=== PATIENT | male | born 1985 | race Caucasian/White ===

== ENCOUNTER 2017-06-08 11:35 | Day surgery (SDC) | payer OTHER ==
[~2017-06-08] VITALS: Ht 170.2 cm; Wt 83.1 kg
[2017-06-08 12:24] LABS: HEMATOCRIT 47.7 % (39.2-51.8); HEMOGLOBIN 15.8 g/dL (13.7-18.0)
[2017-06-08] MEDS ORDERED: SODIUM CHLORIDE FLUSH 10ML SYR IVF ONE ×2 (12:30→14:00)
[2017-06-08 12:35] LABS: BLOOD UREA NITROGEN 12 mg/dL (7-18)
[2017-06-08 12:38] LABS: ASPARTATE AMINO TRANSFERASE 11 U/L (15-37)
[2017-06-08] MEDS ORDERED: OMNIPAQUE 350 MG/ML, 100ML BOTTLE ONE (15:16)
[2017-06-08 16:11] VITALS: BP 124/76
[2017-06-08] MEDS ORDERED: SODIUM CHLORIDE 0.9% 1,000 ML IV ONE (16:11)
[2017-06-08] MEDS ORDERED: CEFOTETAN PMX 1GM/50ML 50 ML ONE (16:21)
[2017-06-08] MEDS ORDERED: HYDROmorphone 1 MG/ML, 1ML IVPush PRN (16:30)
[2017-06-08] MEDS ORDERED: CEFOTETAN PMX 1GM/50ML 50 ML IV ONE (16:30)
[2017-06-08] MEDS ORDERED: SODIUM CHLORIDE FLUSH 10ML SYR IVF PRN (16:30)
[2017-06-08] MEDS ORDERED: ONDANSETRON 2MG/ML, 2ML IVPush PRN ×3 (16:30→18:30)
[2017-06-08] MEDS ORDERED: BUPIVACAINE/PF 0.5% ONE (17:03)
[2017-06-08] MEDS ORDERED: EPINEPHRINE 1 MG/ML, 1ML ONE (17:04)
[2017-06-08] MEDS ORDERED: FENTANYL PF 100 MCG/2ML ONE ×3 (17:04→18:09)
[2017-06-08] MEDS ORDERED: MIDAZOLAM 1 MG/ML, 2ML ONE (17:04)
[2017-06-08] MEDS ORDERED: GLYCOPYRROLATE 0.4 MG/2 ML, 2ML ONE (17:22)
[2017-06-08] MEDS ORDERED: KETOROLAC 30 MG/1 ML ONE (17:22)
[2017-06-08] MEDS ORDERED: ROCURONIUM 10 MG/ML ONE (17:22)
[2017-06-08] MEDS ORDERED: NEOSTIGMINE 1 MG/ML, 10ML ONE (17:22)
[2017-06-08] MEDS ORDERED: PROPOFOL 10 MG/ML, 20ML ONE (17:22)
[2017-06-08] MEDS ORDERED: ONDANSETRON 2MG/ML, 2ML ONE (17:22)
[2017-06-08] MEDS ORDERED: DEXAMETHASONE 4 MG/ML, 1ML ONE (17:22)
[2017-06-08] MEDS ORDERED: SUCCINYLCHOLINE 20 MG/ML, 10ML ONE (17:22)
[2017-06-08] MEDS ORDERED: CEFAZOLIN 1,000 MG ONE (17:22)
[2017-06-08] MEDS ORDERED: OXYcodone 5 MG/5 ML ORAL.SOL UDC PO PRN ×2 (18:00→18:30)
[2017-06-08] MEDS ORDERED: DIPHENHYDRAMINE 50 MG/ML, 1ML IVPush PRN (18:00)
[2017-06-08] MEDS ORDERED: MEPERIDINE/PF 25MG/0.5ML ONE (18:09)
[2017-06-08] MEDS: FENTANYL PF 100 MCG/2ML IV PRN ×3 (18:09→18:30)
[2017-06-08] MEDS ORDERED: MEPERIDINE/PF 25MG/0.5ML IVPush PRN (18:30)
[2017-06-08] MEDS ORDERED: LABETALOL 5MG/ML, 20ML IV PRN (18:30)
[2017-06-08] MEDS ORDERED: HYDROmorphone 1 MG/ML, 1ML IV PRN (18:30)
[2017-06-08] MEDS ORDERED: hydrALAzine 20 MG/ML, 1ML IV PRN (18:30)
[2017-06-08] MEDS ORDERED: METOCLOPRAMIDE 5 MG/ML, 2ML IV PRN (18:30)
[2017-06-08] MEDS ORDERED: ACETAMINOPHEN 325 MG TABLET PO PRN (18:30)
[2017-06-08] MEDS ORDERED: OXYC5TAB2 PO (20:08)
== END 2017-06-08 20:30 | disposition home or self-care (01) ==
LOC: ED 13:41 → SDC 16:11 → ORIP 16:11 → UNDOADMIN 16:11 → EDIP 18:04 → ORIP 18:04 → EDIP 19:16 → 4NOR 19:16 → UNDODISIN 20:30 → SDC 20:30
PROVIDERS: ATTEND Surgery
DX: K35.80 Unspecified acute appendicitis (principal)
CPT/HCPCS: 36415; 44970; 74177; 80053; 81001; 85025; 88304; 96365; 99285; J0171; J0330; J0690; J1100; J1885; J2175; J2250; J2405; J2704; J2710; J3010; J3490; J7030; Q9967; S0074